=== PATIENT | male | born 1960 | race Caucasian/White ===

== ENCOUNTER 2016-12-11 13:02 | Emergency (ER) | payer OTHER ==
[~2016-12-11] VITALS: Ht 185.4 cm; Wt 78.6 kg
[~2016-12-11 13:02] MED LIST: CIPRO500 MG PO; CIPROFLOXACIN500 M1 PO; COUMADIN1 MG PO; DOXYCYCLINE HY100 MG PO; FERROUS SULFAT325 MG PO; FLAGYL500 MG PO; KETOCONAZOLE60 GM TP; LEVAQUIN750 MG PO; LOVENOX100 MG/1 M SC; LYRICA200 MG PO; METHADONE10 MG PO; MIDODRINE HCL5 MG PO; MORPHINE SULFAT60 MG PO; MS CONTIN,ORAMO60 MG PO; SANTYL30 GM TP; SILVADENE20 GM TP; VANCOMYCIN; VANCOMYCIN HCL250 MG PO; VANCOMYCIN1 GM/150 M IV
[2016-12-11 14:53] LABS: ADD MIUA? YES; BILIRUBIN NEGATIVE; BLOOD SMALL; COLOR YELLOW ((YELLOW)); GLUCOSE (STRIP) NEGATIVE; KETONES NEGATIVE; LEUKOCYTES LARGE; NITRITE POSITIVE; PH, URINE 8.5 (5-8); PROTEIN (STRIP) 100; SPECIFIC GRAVITY 1.015 (1.000-1.030); UROBILINOGEN 0.2 MG/DL (0.2-1.0)
[2016-12-11 14:58] VITALS: BP 99/47
[2016-12-11] MEDS ORDERED: BACTRIM,SEPT1 TABLET PO (15:02)
[2016-12-11 15:15] LABS: RED BLOOD CELLS RARE /HPF (0-5)
[2016-12-11 15:18] LABS: WHITE BLOOD CELLS 30-40 /HPF (0-5)
[2016-12-11 15:19] LABS: BACTERIA 3+; CASTS NONE SEEN /LPF; CRYSTALS NONE SEEN; EPITHELIAL CELLS NONE SEEN; MUCUS NONE SEEN; UCUL ADDED? YES
== END 2016-12-11 14:59 | disposition home or self-care (01) ==
LOC: EME 13:02
PROVIDERS: Nurse Practitioner Family
DX: Z46.6 Encounter for fitting and adjustment of urinary device (principal); N39.0 Urinary tract infection, site not specified; I10 Essential (primary) hypertension; G82.20 Paraplegia, unspecified; Z89.612 Acquired absence of left leg above knee; Z89.611 Acquired absence of right leg above knee; L89.309 Pressure ulcer of unspecified buttock, unspecified stage; Z88.0 Allergy status to penicillin; Z87.891 Personal history of nicotine dependence
CPT/HCPCS: 81003; 87077; 87086; 87186; 99281; 99284

== ENCOUNTER 2017-02-13 09:55 | Emergency (ER) | payer OTHER ==
[~2017-02-13] VITALS: Ht 142.2 cm; Wt 68.1 kg
[~2017-02-13 09:55] MED LIST changes: +BACTRIM,SEPT1 TABLET PO
[2017-02-13 11:03] LABS: ADD MIUA? YES; BILIRUBIN NEGATIVE; BLOOD NEGATIVE; COLOR YELLOW ((YELLOW)); GLUCOSE (STRIP) NEGATIVE; KETONES NEGATIVE; LEUKOCYTES LARGE; NITRITE NEGATIVE; PROTEIN (STRIP) 30; SPECIFIC GRAVITY 1.017 (1.000-1.030); UROBILINOGEN 0.2 MG/DL (0.2-1.0)
[2017-02-13 11:15] LABS: BACTERIA 2+ /HPF; BUDDING YEAST RARE; EPITHELIAL CELLS NONE SEEN /HPF; MUCUS NONE SEEN /LPF; UCUL ADDED? YES; UNCLASSIFIED CRYSTALS 3+ /HPF; WHITE BLOOD CELLS TNTC /HPF (0-5)
[2017-02-13 11:20] VITALS: BP 102/50
== END 2017-02-13 11:21 | disposition left against medical advice (07) ==
LOC: EME 09:55
PROVIDERS: Emergency Medicine
PROC: 0T2BX0Z Change Drainage Device in Bladder, External Approach (ICD-10-PCS; principal; 2017-02-13)
DX: T83.091A Other mechanical complication of indwelling urethral catheter, initial encounter (principal); N39.0 Urinary tract infection, site not specified; G82.20 Paraplegia, unspecified; Z89.611 Acquired absence of right leg above knee; Z89.612 Acquired absence of left leg above knee; Z93.3 Colostomy status; Z79.891 Long term (current) use of opiate analgesic; Z87.891 Personal history of nicotine dependence
CPT/HCPCS: 81003; 87077; 87086; 87186; 99281

== ENCOUNTER 2017-02-16 16:15 | Observation (INO) | payer OTHER ==
[~2017-02-16] VITALS: Ht 139.7 cm; Wt 70.5 kg
[2017-02-16 18:54] LABS: CHLORIDE 103 mEq/L (99-109); POTASSIUM 4.5 mEq/L (3.7-5.4); SODIUM 139 mEq/L (136-147)
[2017-02-16 18:56] LABS: GLUCOSE 72 mg/dL (70-99)
[2017-02-16 18:57] LABS: ANION GAP 12 MEQ/L (2-14)
[2017-02-16 18:58] LABS: TOTAL BILIRUBIN 0.2 mg/dL (0.0-1.0)
[2017-02-16 18:59] LABS: ALKALINE PHOSPHATASE 272 IU/L (3-129)
[2017-02-16 19:00] LABS: GFR ESTIMATE (CALCULATED) > 59 mL/min/
[2017-02-16 19:01] LABS: UREA NITROGEN (BUN) 22 mg/dL (9-23)
[2017-02-16 19:03] LABS: BASOPHIL COUNT 0.1 K/uL (0-0.1); EOSINOPHIL COUNT 0.4 K/uL (0-0.3); IMMATURE GRANULOCYTE (%) 0.7 % (0.0-0.7); IMMATURE GRANULOCYTE COUNT 0.1 K/uL; INSTRUMENT ABS NEUTROPHIL CT 9.1 K/uL; LYMPHOCYTE COUNT 1.8 K/uL (1.0-2.8); MCH 20.3 PG (29.0-34.0); MCHC 26.7 G/DL (30.0-36.0); MCV 76.3 FL (86-99); MEAN PLAT.VOLUME 8.5 uM^3 (9.0-12.4); MONOCYTE (%) 5.6 % (3-12); MONOCYTE COUNT 0.7 K/uL (0-0.8); NEUTROPHIL (%) 75.2 % (45-76); NEUTROPHIL COUNT 9.1 K/uL (1.8-6.4); PLATELET COUNT 621 K/uL (156-360); RBC DIS.WIDTH-CV 17.5 % (11.8-14.6); RED BLOOD COUNT 3.54 M/uL (4.00-5.50); WHITE BLOOD COUNT 12.1 K/uL (4.1-10.2)
[2017-02-16] MEDS ORDERED: LO-DOSE ASPIRIN81 M1 PO (23:34)
[2017-02-17 02:08] LABS: ADD MIUA? YES; BILIRUBIN NEGATIVE; BLOOD NEGATIVE; COLOR YELLOW ((YELLOW)); GLUCOSE (STRIP) NEGATIVE; KETONES NEGATIVE; LEUKOCYTES LARGE; NITRITE NEGATIVE; PROTEIN (STRIP) NEGATIVE; SPECIFIC GRAVITY 1.034 (1.000-1.030); UROBILINOGEN 0.2 MG/DL (0.2-1.0)
[2017-02-17 02:17] LABS: BACTERIA NONE SEEN /HPF; EPITHELIAL CELLS NONE SEEN /HPF; MUCUS TRACE /LPF; RED BLOOD CELLS 0-5 /HPF (0-5); UCUL ADDED? YES; WHITE BLOOD CELLS TNTC /HPF (0-5)
[2017-02-17 08:10] LABS: EOSINOPHIL (%) 5.7 % (0-5); EOSINOPHIL COUNT 0.4 K/uL (0-0.3); HEMATOCRIT 24.9 % (38.0-50.0); IMMATURE GRANULOCYTE (%) 0.8 % (0.0-0.7); IMMATURE GRANULOCYTE COUNT 0.1 K/uL; INSTRUMENT ABS NEUTROPHIL CT 4.1 K/uL; LYMPHOCYTE COUNT 1.4 K/uL (1.0-2.8); MCH 20.5 PG (29.0-34.0); MCHC 27.3 G/DL (30.0-36.0); MCV 75.2 FL (86-99); MONOCYTE (%) 7.5 % (3-12); MONOCYTE COUNT 0.5 K/uL (0-0.8); NEUTROPHIL COUNT 4.1 K/uL (1.8-6.4); PLATELET COUNT 541 K/uL (156-360); RBC DIS.WIDTH-CV 17.6 % (11.8-14.6); RBC DIS.WIDTH-SD 47.9 % (39-53); RED BLOOD COUNT 3.31 M/uL (4.00-5.50)
[2017-02-17 08:11] LABS: WHITE BLOOD COUNT 6.4 K/uL (4.1-10.2)
[2017-02-17 08:17] LABS: CHLORIDE 107 mEq/L (99-109); POTASSIUM 4.4 mEq/L (3.7-5.4); SODIUM 140 mEq/L (136-147)
[2017-02-17 08:18] LABS: GLUCOSE 70 mg/dL (70-99)
[2017-02-17 08:20] LABS: ANION GAP 12 MEQ/L (2-14)
[2017-02-17 08:22] LABS: GFR ESTIMATE (CALCULATED) > 59 mL/min/
[2017-02-17 08:23] LABS: UREA NITROGEN (BUN) 16 mg/dL (9-23)
[2017-02-17 10:28] VITALS: BP 100/70
[2017-02-17 10:45] VITALS: BP 91/58
[2017-02-17 12:35] LABS: HEMATOCRIT 32.7 % (38.0-50.0); MCV 77.9 FL (86-99)
[2017-02-17 15:50] VITALS: BP 96/64
== END 2017-02-17 13:53 | disposition home or self-care (01) ==
LOC: EME 16:15 → EDOF 02-17 02:21
PROVIDERS: Emergency Medicine; Family Medicine; Nurse Practitioner Adult Health
PROC: 30233N1 Transfusion of Nonautologous Red Blood Cells into Peripheral Vein, Percutaneous Approach (ICD-10-PCS; principal; 2017-02-17)
DX: N39.0 Urinary tract infection, site not specified (principal); I95.9 Hypotension, unspecified; L89.154 Pressure ulcer of sacral region, stage 4; M86.551 Other chronic hematogenous osteomyelitis, right femur; M86.552 Other chronic hematogenous osteomyelitis, left femur; D50.9 Iron deficiency anemia, unspecified; G89.4 Chronic pain syndrome; D72.829 Elevated white blood cell count, unspecified; Z89.611 Acquired absence of right leg above knee; Z89.612 Acquired absence of left leg above knee; Z87.891 Personal history of nicotine dependence
CPT/HCPCS: 72193; 80048; 80053; 81003; 83605; 85014; 85018; 85025; 86850; 86900; 86901; 86920; 87040; 87077; 87086; 87186; 99281; 99285; G0378; J0692; J1644; J2020; J2270; J7030; J7050; P9016

== ENCOUNTER 2017-04-01 11:04 | Emergency (ER) | payer OTHER ==
[~2017-04-01] VITALS: Ht 109.2 cm; Wt 66.1 kg
[~2017-04-01 11:04] MED LIST changes: +LO-DOSE ASPIRIN81 M1 PO
[2017-04-01 15:29] VITALS: BP 96/51
== END 2017-04-01 15:43 | disposition home or self-care (01) ==
LOC: EME 11:04
PROC: 0T9B70Z Drainage of Bladder with Drainage Device, Via Natural or Artificial Opening (ICD-10-PCS; principal; 2017-04-01)
DX: N31.9 Neuromuscular dysfunction of bladder, unspecified (principal); G82.20 Paraplegia, unspecified; S24.103S Unspecified injury at T7-T10 level of thoracic spinal cord, sequela; W11.XXXS Fall on and from ladder, sequela; L89.324 Pressure ulcer of left buttock, stage 4; L89.894 Pressure ulcer of other site, stage 4; Z86.14 Personal history of Methicillin resistant Staphylococcus aureus infection; Z87.440 Personal history of urinary (tract) infections; Z93.3 Colostomy status; Z89.612 Acquired absence of left leg above knee; Z89.611 Acquired absence of right leg above knee; Z79.891 Long term (current) use of opiate analgesic; Z79.82 Long term (current) use of aspirin; Z87.891 Personal history of nicotine dependence
CPT/HCPCS: 99281; 99284

== ENCOUNTER 2017-05-19 07:59 | Emergency (ER) | payer OTHER ==
[~2017-05-19] VITALS: Ht 139.7 cm; Wt 76.4 kg
[2017-05-19 10:35] VITALS: BP 117/56
== END 2017-05-19 10:36 | disposition home or self-care (01) ==
LOC: EME 07:59
DX: T83.89XA Other specified complication of genitourinary prosthetic devices, implants and grafts, initial encounter (principal); G82.20 Paraplegia, unspecified; Y84.6 Urinary catheterization as the cause of abnormal reaction of the patient, or of later complication, without mention of misadventure at the time of the procedure; I10 Essential (primary) hypertension; Z88.0 Allergy status to penicillin; Z87.891 Personal history of nicotine dependence
CPT/HCPCS: 99281; 99282

== ENCOUNTER 2017-08-24 08:47 | Emergency (ER) | payer OTHER ==
[~2017-08-24] VITALS: Ht 185.4 cm; Wt 75.0 kg
[2017-08-24 11:09] VITALS: BP 114/49
== END 2017-08-24 11:09 | disposition left against medical advice (07) ==
LOC: EME 08:47
PROC: 0T9B70Z Drainage of Bladder with Drainage Device, Via Natural or Artificial Opening (ICD-10-PCS; principal; 2017-08-24)
DX: T83.018A Breakdown (mechanical) of other urinary catheter, initial encounter (principal); Z93.3 Colostomy status; G82.20 Paraplegia, unspecified; Z89.612 Acquired absence of left leg above knee; Z89.511 Acquired absence of right leg below knee; Z88.0 Allergy status to penicillin; I10 Essential (primary) hypertension; Z87.891 Personal history of nicotine dependence
CPT/HCPCS: 99281; 99283

== ENCOUNTER 2017-10-27 11:58 | Observation (INO) | payer OTHER ==
[~2017-10-27] VITALS: Ht 142.2 cm; Wt 66.0 kg
[2017-10-27 13:10] LABS: CHLORIDE 102 mEq/L (99-109); POTASSIUM 5.2 mEq/L (3.7-5.4); SODIUM 138 mEq/L (136-147)
[2017-10-27 13:15] LABS: ANION GAP 14 MEQ/L (2-14); GLUCOSE 93 mg/dL (70-99); TOTAL BILIRUBIN 0.2 mg/dL (0.0-1.0)
[2017-10-27 13:19] LABS: ALKALINE PHOSPHATASE 215 IU/L (3-129); GFR ESTIMATE (CALCULATED) > 59 mL/min/; UREA NITROGEN (BUN) 15 mg/dL (9-23)
[2017-10-27 13:21] LABS: TROP-I INTERPRETATION NEGATIVE; TROPONIN-I < 0.01 ng/mL (0.0-0.30)
[2017-10-27 16:29] LABS: EOSINOPHIL (%) 1.1 % (0-5); EOSINOPHIL COUNT 0.1 K/uL (0-0.3); HEMATOCRIT 34.9 % (38.0-50.0); IMMATURE GRANULOCYTE (%) 0.5 % (0.0-0.7); INSTRUMENT ABS NEUTROPHIL CT 5.7 K/uL; LYMPHOCYTE COUNT 1.1 K/uL (1.0-2.8); MCH 21.9 PG (29.0-34.0); MCHC 29.2 G/DL (30.0-36.0); MCV 75.1 FL (86-99); MONOCYTE (%) 4.8 % (3-12); MONOCYTE COUNT 0.4 K/uL (0-0.8); NEUTROPHIL (%) 78.2 % (45-76); NEUTROPHIL COUNT 5.7 K/uL (1.8-6.4); RBC DIS.WIDTH-CV 16.5 % (11.8-14.6); RBC DIS.WIDTH-SD 44.7 % (39-53); RED BLOOD COUNT 4.65 M/uL (4.00-5.50); WHITE BLOOD COUNT 7.3 K/uL (4.1-10.2)
[2017-10-27 17:07] LABS: MEAN PLAT.VOLUME 9.5 uM^3 (9.0-12.4); PLAT.SUFFICIENCY INCREASED; PLATELET COUNT 519 K/uL (156-360)
[2017-10-27 18:39] VITALS: BP 87/53
[2017-10-27 19:30] VITALS: BP 99/54
[2017-10-27 21:39] LABS: ADD MIUA? YES; BILIRUBIN NEGATIVE; BLOOD SMALL; COLOR AMBER ((YELLOW)); GLUCOSE (STRIP) NEGATIVE; KETONES NEGATIVE; LEUKOCYTES LARGE; NITRITE POSITIVE; PROTEIN (STRIP) 100; SPECIFIC GRAVITY 1.021 (1.000-1.030)
[2017-10-27 21:56] LABS: AMPHETAMINES QUANT VALUE 0 NG/ML; BARBITUATES QUANT VALUE 0 NG/ML; BENZODIAZEPINES QUANT VALUE 0 NG/ML; BENZODIAZEPINES, URINE SCREEN Negative (200 ng/mL); MARIJUANA QUANT VALUE 0 NG/ML; OPIATES QUANTITATIVE VALUE 0 NG/ML; PHENCYCLIDINE QUANT VALUE 0 NG/ML
[2017-10-27 22:01] LABS: EPITHELIAL CELLS RARE /HPF; RED BLOOD CELLS RARE /HPF (0-5); WHITE BLOOD CELLS 40-50 /HPF (0-5)
[2017-10-27 22:02] LABS: BACTERIA 3+ /HPF; MUCUS NONE SEEN /LPF; UCUL ADDED? YES
[2017-10-27 22:03] LABS: CASTS NONE SEEN /LPF; CRYSTALS PRESENT
[2017-10-27 23:04] VITALS: BP 77/46
[2017-10-27 23:05] LABS: METH RESISTANT S AUREUS PCR POSITIVE (NEGATIVE)
[2017-10-27 23:08] LABS: PROBE CHECK PASS
[2017-10-28 02:35] VITALS: BP 92/55
[2017-10-28 03:10] LABS: TROP-I INTERPRETATION NEGATIVE; TROPONIN-I < 0.01 ng/mL (0.0-0.30)
[2017-10-28 04:54] VITALS: BP 109/58
[2017-10-28 07:01] VITALS: BP 90/44
[2017-10-28 10:16] LABS: HEMATOCRIT 31.2 % (38.0-50.0); MCH 22.6 PG (29.0-34.0); MCHC 29.5 G/DL (30.0-36.0); MCV 76.7 FL (86-99); PLATELET COUNT 416 K/uL (156-360); RBC DIS.WIDTH-CV 16.2 % (11.8-14.6); RBC DIS.WIDTH-SD 45.2 % (39-53); RED BLOOD COUNT 4.07 M/uL (4.00-5.50); WHITE BLOOD COUNT 5.7 K/uL (4.1-10.2)
[2017-10-28 10:59] LABS: ANION GAP 7 MEQ/L (2-14); CHLORIDE 106 MEQ/L (99-109); GFR ESTIMATE (CALCULATED) > 59 mL/min/; GLUCOSE 83 mg/dL (70-99); POTASSIUM 4.1 MEQ/L (3.7-5.4); SAMPLE HEMOLYSIS CHECK 0; SAMPLE ICTERIC CHECK 0; SAMPLE LIPEMIA CHECK 0; SODIUM 139 MEQ/L (136-147); UREA NITROGEN (BUN) 12 mg/dL (9-23)
[2017-10-28 11:43] VITALS: BP 86/49
[2017-10-28] MEDS ORDERED: LYRICA200 MG PO (16:07)
[2017-10-28 19:16] VITALS: BP 93/52
[2017-10-29 00:52] VITALS: BP 94/50
[2017-10-29 02:58] VITALS: BP 97/50
[2017-10-29] MEDS ORDERED: ULTRAM50 MG PO (08:40)
[2017-10-29] MEDS ORDERED: LIDODERM 5% P1 PATCH TD (08:40)
[2017-10-29 09:01] VITALS: BP 92/60
== END 2017-10-29 13:10 | disposition home or self-care (01) ==
LOC: EME 11:58 → EDOF 16:31 → 5WEST 16:31 → ENRESERV 16:50 → 5WEST 17:59
PROVIDERS: Emergency Medicine; Internal Medicine; Physician Assistant
PROC: 0T2BX0Z Change Drainage Device in Bladder, External Approach (ICD-10-PCS; principal; 2017-10-27)
DX: R07.9 Chest pain, unspecified (principal); N39.0 Urinary tract infection, site not specified; Z16.24 Resistance to multiple antibiotics; Z74.2 Need for assistance at home and no other household member able to render care; Z60.2 Problems related to living alone; Z89.611 Acquired absence of right leg above knee; Z89.612 Acquired absence of left leg above knee; Z93.3 Colostomy status; N36.8 Other specified disorders of urethra; G82.20 Paraplegia, unspecified; S22.069S Unspecified fracture of T7-T8 vertebra, sequela; W11.XXXS Fall on and from ladder, sequela; S21.101A Unspecified open wound of right front wall of thorax without penetration into thoracic cavity, initial encounter; L89.329 Pressure ulcer of left buttock, unspecified stage; L89.319 Pressure ulcer of right buttock, unspecified stage; G89.4 Chronic pain syndrome; L89.159 Pressure ulcer of sacral region, unspecified stage; D64.9 Anemia, unspecified; Q54.9 Hypospadias, unspecified; Z93.6 Other artificial openings of urinary tract status; N31.9 Neuromuscular dysfunction of bladder, unspecified; F11.20 Opioid dependence, uncomplicated; I95.9 Hypotension, unspecified; Z87.891 Personal history of nicotine dependence; Z88.5 Allergy status to narcotic agent; Z88.0 Allergy status to penicillin
CPT/HCPCS: 71010; 80048; 80053; 80150 90; 80170; 80306 90; 81003; 83605; 83690; 84484; 85025; 85027; 87040; 87077; 87086; 87186; 87641; 93005; 99281; 99285; G0378; J0278; J1650; J2020; J2405; J7030; J7050

== ENCOUNTER 2017-11-17 19:44 | Emergency (ER) | payer OTHER ==
[~2017-11-17] VITALS: Ht 152.4 cm; Wt 66.0 kg
[~2017-11-17 19:44] MED LIST changes: +LIDODERM 5% P1 PATCH TD; +ULTRAM50 MG PO
[2017-11-17] MEDS ORDERED: LYRICA200 MG PO (23:09)
[2017-11-18] MEDS ORDERED: PERCOCET 5/31 TABLET PO (00:22)
[2017-11-18 01:45] VITALS: BP 108/61
== END 2017-11-18 02:45 | disposition home or self-care (01) ==
LOC: EME 19:44
DX: S39.012A Strain of muscle, fascia and tendon of lower back, initial encounter (principal); W06.XXXA Fall from bed, initial encounter; Y93.84 Activity, sleeping; Y92.003 Bedroom of unspecified non-institutional (private) residence as the place of occurrence of the external cause; M48.061 Spinal stenosis, lumbar region without neurogenic claudication; Z89.612 Acquired absence of left leg above knee; Z89.611 Acquired absence of right leg above knee; Z79.891 Long term (current) use of opiate analgesic; Z79.82 Long term (current) use of aspirin; Z87.891 Personal history of nicotine dependence
CPT/HCPCS: 72131; 99281; 99284; J2270

== ENCOUNTER 2017-12-20 23:35 | Inpatient (IN) | payer OTHER ==
[~2017-12-20] VITALS: Ht 152.4 cm; Wt 68.9 kg
[~2017-12-20 23:35] MED LIST changes: +PERCOCET 5/31 TABLET PO
[2017-12-21 01:00] LABS: BASOPHIL (%) 0.4 % (0-1); EOSINOPHIL COUNT 0.2 K/uL (0-0.3); HEMATOCRIT 38.2 % (38.0-50.0); HEMOGLOBIN 11.3 G/DL (12.5-16.6); IMMATURE GRANULOCYTE (%) 0.6 % (0.0-0.7); LYMPHOCYTE (%) 11.4 % (15-42); LYMPHOCYTE COUNT 1.1 K/uL (1.0-2.8); MCH 21.9 PG (29.0-34.0); MCHC 29.6 G/DL (30.0-36.0); MCV 74.2 FL (86-99); MONOCYTE (%) 7.8 % (3-12); MONOCYTE COUNT 0.8 K/uL (0-0.8); NEUTROPHIL (%) 77.8 % (45-76); NEUTROPHIL COUNT 7.7 K/uL (1.8-6.4); PLATELET COUNT 581 K/uL (156-360); RBC DIS.WIDTH-CV 16.5 % (11.8-14.6); RBC DIS.WIDTH-SD 44.2 % (39-53); RED BLOOD COUNT 5.15 M/uL (4.00-5.50); WHITE BLOOD COUNT 9.9 K/uL (4.1-10.2)
[2017-12-21 01:08] LABS: CHLORIDE 103 mEq/L (99-109); POTASSIUM 4.6 mEq/L (3.7-5.4); SODIUM 139 mEq/L (136-147)
[2017-12-21 01:09] LABS: GLUCOSE 104 mg/dL (70-99)
[2017-12-21 01:13] LABS: CREATININE 0.8 mg/dL (0.6-1.3); GFR ESTIMATE (CALCULATED) > 59 mL/min/ (58.99-99999)
[2017-12-21 01:14] LABS: UREA NITROGEN (BUN) 12 mg/dL (9-23)
[2017-12-21] MEDS ORDERED: TRAMADOL HCL50 MG PO (09:42)
[2017-12-21] MEDS ORDERED: METHADONE10 MG PO (09:43)
[2017-12-21 10:15] VITALS: BP 107/57
[2017-12-21 16:27] VITALS: BP 89/54
[2017-12-21 20:08] VITALS: BP 87/50
[2017-12-21 21:00] VITALS: BP 101/66
[2017-12-22] VITALS (9 sets, daily range): BP systolic 67–106; BP diastolic 44–62
[2017-12-22 06:00] LABS: HEMATOCRIT 34.7 % (38.0-50.0); MCH 21.6 PG (29.0-34.0); MCHC 28.8 G/DL (30.0-36.0); MCV 75.1 FL (86-99); PLATELET COUNT 520 K/uL (156-360); RBC DIS.WIDTH-CV 16.8 % (11.8-14.6); RBC DIS.WIDTH-SD 45.6 % (39-53); RED BLOOD COUNT 4.62 M/uL (4.00-5.50); WHITE BLOOD COUNT 6.4 K/uL (4.1-10.2)
[2017-12-22 06:12] LABS: CHLORIDE 109 MEQ/L (99-109); CREATININE 0.9 MG/DL (0.6-1.3); GFR ESTIMATE (CALCULATED) > 59 mL/min/ (58.99-99999); SODIUM 141 MEQ/L (136-147); UREA NITROGEN (BUN) 12 mg/dL (9-23)
[2017-12-22 06:14] LABS: GLUCOSE 69 mg/dL (70-99)
[2017-12-23 03:50] VITALS: BP 99/53
[2017-12-23 09:22] VITALS: BP 80/45
[2017-12-23 16:51] VITALS: BP 84/47
[2017-12-23 23:30] VITALS: BP 99/54
[2017-12-24] VITALS (7 sets, daily range): BP systolic 64–122; BP diastolic 38–84
[2017-12-25 01:13] VITALS: BP 85/45
[2017-12-25 15:30] VITALS: BP 89/50
[2017-12-25 21:00] VITALS: BP 101/65
[2017-12-25 23:32] VITALS: BP 94/51
[2017-12-26 06:05] LABS: CHLORIDE 104 MEQ/L (99-109); CREATININE 0.7 MG/DL (0.6-1.3); GFR ESTIMATE (CALCULATED) > 59 mL/min/ (58.99-99999); GLUCOSE 90 mg/dL (70-99); POTASSIUM 4.2 MEQ/L (3.7-5.4); SODIUM 139 MEQ/L (136-147); UREA NITROGEN (BUN) 17 mg/dL (9-23)
[2017-12-26 07:17] VITALS: BP 85/52
[2017-12-26 09:42] LABS: HEMATOCRIT 31.5 % (38.0-50.0); HEMOGLOBIN 9.3 G/DL (12.5-16.6); MCH 22.6 PG (29.0-34.0); MCHC 29.5 G/DL (30.0-36.0); MCV 76.5 FL (86-99); PLATELET COUNT 393 K/uL (156-360); RBC DIS.WIDTH-CV 17.5 % (11.8-14.6); RBC DIS.WIDTH-SD 47.3 % (39-53); RED BLOOD COUNT 4.12 M/uL (4.00-5.50); WHITE BLOOD COUNT 6.5 K/uL (4.1-10.2)
[2017-12-26 15:40] VITALS: BP 92/52
[2017-12-26 23:48] VITALS: BP 132/63
[2017-12-27 04:00] VITALS: BP 110/65
[2017-12-27 05:58] LABS: BASOPHIL (%) 1.1 % (0-1); BASOPHIL COUNT 0.1 K/uL (0-0.1); EOSINOPHIL (%) 5.6 % (0-5); EOSINOPHIL COUNT 0.3 K/uL (0-0.3); HEMATOCRIT 30.9 % (38.0-50.0); HEMOGLOBIN 8.9 G/DL (12.5-16.6); IMMATURE GRANULOCYTE (%) 0.7 % (0.0-0.7); LYMPHOCYTE (%) 45.8 % (15-42); LYMPHOCYTE COUNT 2.5 K/uL (1.0-2.8); MCH 21.7 PG (29.0-34.0); MCHC 28.8 G/DL (30.0-36.0); MCV 75.4 FL (86-99); MONOCYTE (%) 7.1 % (3-12); MONOCYTE COUNT 0.4 K/uL (0-0.8); NEUTROPHIL (%) 39.7 % (45-76); NEUTROPHIL COUNT 2.2 K/uL (1.8-6.4); PLATELET COUNT 354 K/uL (156-360); RBC DIS.WIDTH-CV 17.4 % (11.8-14.6); RBC DIS.WIDTH-SD 46.1 % (39-53); WHITE BLOOD COUNT 5.5 K/uL (4.1-10.2)
[2017-12-27 06:08] LABS: ALBUMIN 2.7 G/DL (3.2-4.8); CHLORIDE 105 MEQ/L (99-109); POTASSIUM 4.3 MEQ/L (3.7-5.4); SODIUM 141 MEQ/L (136-147); TOTAL BILIRUBIN 0.2 MG/DL (0.0-1.0)
[2017-12-27 06:14] LABS: ALKALINE PHOSPHATASE 87 IU/L (3-129); ALT (GPT) 7 IU/L (3-49); AST (GOT) 11 IU/L (2-34); CREATININE 0.7 MG/DL (0.6-1.3); GFR ESTIMATE (CALCULATED) > 59 mL/min/ (58.99-99999); GLUCOSE 83 mg/dL (70-99); TOTAL PROTEIN 5.9 G/DL (6.4-8.3); UREA NITROGEN (BUN) 18 mg/dL (9-23)
[2017-12-27 08:08] VITALS: BP 109/55
[2017-12-27] MEDS ORDERED: METHADONE10 MG PO (13:48)
[2017-12-27 16:06] VITALS: BP 163/79; BP 84/46
[2017-12-27 18:31] VITALS: BP 99/51
[2017-12-28] VITALS (9 sets, daily range): BP systolic 78–109; BP diastolic 40–79
[2017-12-28 06:08] LABS: BASOPHIL (%) 1.1 % (0-1); BASOPHIL COUNT 0.1 K/uL (0-0.1); EOSINOPHIL (%) 5.2 % (0-5); EOSINOPHIL COUNT 0.3 K/uL (0-0.3); HEMATOCRIT 32.1 % (38.0-50.0); HEMOGLOBIN 9.3 G/DL (12.5-16.6); IMMATURE GRANULOCYTE (%) 0.5 % (0.0-0.7); LYMPHOCYTE (%) 42.2 % (15-42); LYMPHOCYTE COUNT 2.3 K/uL (1.0-2.8); MCH 22.1 PG (29.0-34.0); MCV 76.4 FL (86-99); MONOCYTE (%) 7.7 % (3-12); MONOCYTE COUNT 0.4 K/uL (0-0.8); NEUTROPHIL (%) 43.3 % (45-76); NEUTROPHIL COUNT 2.4 K/uL (1.8-6.4); PLATELET COUNT 353 K/uL (156-360); RBC DIS.WIDTH-CV 17.6 % (11.8-14.6); RBC DIS.WIDTH-SD 47.8 % (39-53); WHITE BLOOD COUNT 5.6 K/uL (4.1-10.2)
[2017-12-28 06:34] LABS: ALBUMIN 2.8 G/DL (3.2-4.8); ALKALINE PHOSPHATASE 79 IU/L (3-129); ALT (GPT) 10 IU/L (3-49); AST (GOT) 16 IU/L (2-34); CHLORIDE 104 MEQ/L (99-109); CREATININE 0.8 MG/DL (0.6-1.3); GFR ESTIMATE (CALCULATED) > 59 mL/min/ (58.99-99999); GLUCOSE 91 mg/dL (70-99); POTASSIUM 4.5 MEQ/L (3.7-5.4); SODIUM 140 MEQ/L (136-147); TOTAL BILIRUBIN 0.2 MG/DL (0.0-1.0); TOTAL PROTEIN 6.8 G/DL (6.4-8.3); UREA NITROGEN (BUN) 20 mg/dL (9-23)
[2017-12-29 00:25] VITALS: BP 124/68
[2017-12-29 03:39] VITALS: BP 97/58
[2017-12-29 05:36] LABS: BASOPHIL (%) 0.9 % (0-1); BASOPHIL COUNT 0.1 K/uL (0-0.1); EOSINOPHIL (%) 5.8 % (0-5); EOSINOPHIL COUNT 0.3 K/uL (0-0.3); HEMATOCRIT 29.9 % (38.0-50.0); HEMOGLOBIN 8.6 G/DL (12.5-16.6); IMMATURE GRANULOCYTE (%) 0.4 % (0.0-0.7); LYMPHOCYTE COUNT 2.4 K/uL (1.0-2.8); MCH 21.9 PG (29.0-34.0); MCHC 28.8 G/DL (30.0-36.0); MCV 76.1 FL (86-99); MONOCYTE (%) 7.8 % (3-12); MONOCYTE COUNT 0.4 K/uL (0-0.8); NEUTROPHIL (%) 42.1 % (45-76); NEUTROPHIL COUNT 2.3 K/uL (1.8-6.4); PLATELET COUNT 345 K/uL (156-360); RBC DIS.WIDTH-CV 17.6 % (11.8-14.6); RBC DIS.WIDTH-SD 47.8 % (39-53); RED BLOOD COUNT 3.93 M/uL (4.00-5.50); WHITE BLOOD COUNT 5.5 K/uL (4.1-10.2)
[2017-12-29 06:03] LABS: CHLORIDE 102 MEQ/L (99-109); CREATININE 0.9 MG/DL (0.6-1.3); GFR ESTIMATE (CALCULATED) > 59 mL/min/ (58.99-99999); GLUCOSE 89 mg/dL (70-99); POTASSIUM 4.6 MEQ/L (3.7-5.4); SODIUM 138 MEQ/L (136-147); UREA NITROGEN (BUN) 22 mg/dL (9-23)
[2017-12-29 08:26] VITALS: BP 91/56
[2017-12-29 11:42] VITALS: BP 92/52
[2017-12-29 19:30] VITALS: BP 91/54
[2017-12-30] VITALS (7 sets, daily range): BP systolic 96–131; BP diastolic 54–70
[2017-12-30 05:50] LABS: BASOPHIL (%) 1.1 % (0-1); BASOPHIL COUNT 0.1 K/uL (0-0.1); EOSINOPHIL (%) 5.7 % (0-5); EOSINOPHIL COUNT 0.4 K/uL (0-0.3); HEMATOCRIT 30.2 % (38.0-50.0); HEMOGLOBIN 8.8 G/DL (12.5-16.6); IMMATURE GRANULOCYTE (%) 0.3 % (0.0-0.7); LYMPHOCYTE (%) 33.7 % (15-42); LYMPHOCYTE COUNT 2.1 K/uL (1.0-2.8); MCH 22.4 PG (29.0-34.0); MCHC 29.1 G/DL (30.0-36.0); MCV 76.8 FL (86-99); MONOCYTE (%) 7.8 % (3-12); MONOCYTE COUNT 0.5 K/uL (0-0.8); NEUTROPHIL (%) 51.4 % (45-76); NEUTROPHIL COUNT 3.2 K/uL (1.8-6.4); PLATELET COUNT 323 K/uL (156-360); RBC DIS.WIDTH-CV 17.9 % (11.8-14.6); RBC DIS.WIDTH-SD 49.1 % (39-53); RED BLOOD COUNT 3.93 M/uL (4.00-5.50); WHITE BLOOD COUNT 6.3 K/uL (4.1-10.2)
[2017-12-30 06:24] LABS: CHLORIDE 99 MEQ/L (99-109); CREATININE 0.8 MG/DL (0.6-1.3); GFR ESTIMATE (CALCULATED) > 59 mL/min/ (58.99-99999); GLUCOSE 78 mg/dL (70-99); POTASSIUM 4.7 MEQ/L (3.7-5.4); SODIUM 139 MEQ/L (136-147); UREA NITROGEN (BUN) 22 mg/dL (9-23)
[2017-12-31] VITALS (8 sets, daily range): BP systolic 63–128; BP diastolic 33–76
[2017-12-31 05:31] LABS: BASOPHIL (%) 0.6 % (0-1); EOSINOPHIL (%) 5.3 % (0-5); EOSINOPHIL COUNT 0.4 K/uL (0-0.3); HEMATOCRIT 32.9 % (38.0-50.0); HEMOGLOBIN 9.4 G/DL (12.5-16.6); IMMATURE GRANULOCYTE (%) 0.2 % (0.0-0.7); LYMPHOCYTE (%) 30.4 % (15-42); MCH 22.2 PG (29.0-34.0); MCHC 28.6 G/DL (30.0-36.0); MCV 77.6 FL (86-99); MONOCYTE (%) 9.6 % (3-12); MONOCYTE COUNT 0.6 K/uL (0-0.8); NEUTROPHIL (%) 53.9 % (45-76); NEUTROPHIL COUNT 3.6 K/uL (1.8-6.4); PLATELET COUNT 316 K/uL (156-360); RBC DIS.WIDTH-CV 18.3 % (11.8-14.6); RED BLOOD COUNT 4.24 M/uL (4.00-5.50); WHITE BLOOD COUNT 6.6 K/uL (4.1-10.2)
[2017-12-31 06:17] LABS: CHLORIDE 101 MEQ/L (99-109); CREATININE 0.8 MG/DL (0.6-1.3); GFR ESTIMATE (CALCULATED) > 59 mL/min/ (58.99-99999); GLUCOSE 67 mg/dL (70-99); POTASSIUM 4.7 MEQ/L (3.7-5.4); SODIUM 137 MEQ/L (136-147); UREA NITROGEN (BUN) 24 mg/dL (9-23)
[2018-01-01 04:18] VITALS: BP 85/49
[2018-01-01 05:52] LABS: BASOPHIL (%) 0.8 % (0-1); BASOPHIL COUNT 0.1 K/uL (0-0.1); EOSINOPHIL (%) 4.4 % (0-5); EOSINOPHIL COUNT 0.3 K/uL (0-0.3); HEMOGLOBIN 8.6 G/DL (12.5-16.6); IMMATURE GRANULOCYTE (%) 0.3 % (0.0-0.7); LYMPHOCYTE (%) 26.4 % (15-42); LYMPHOCYTE COUNT 1.9 K/uL (1.0-2.8); MCH 22.4 PG (29.0-34.0); MCHC 28.7 G/DL (30.0-36.0); MCV 78.1 FL (86-99); MONOCYTE (%) 10.1 % (3-12); MONOCYTE COUNT 0.7 K/uL (0-0.8); NEUTROPHIL COUNT 4.2 K/uL (1.8-6.4); PLATELET COUNT 281 K/uL (156-360); RBC DIS.WIDTH-CV 18.6 % (11.8-14.6); RBC DIS.WIDTH-SD 51.3 % (39-53); RED BLOOD COUNT 3.84 M/uL (4.00-5.50); WHITE BLOOD COUNT 7.2 K/uL (4.1-10.2)
[2018-01-01 06:21] LABS: CHLORIDE 104 MEQ/L (99-109); CREATININE 0.9 MG/DL (0.6-1.3); GFR ESTIMATE (CALCULATED) > 59 mL/min/ (58.99-99999); GLUCOSE 82 mg/dL (70-99); POTASSIUM 4.7 MEQ/L (3.7-5.4); SODIUM 138 MEQ/L (136-147); UREA NITROGEN (BUN) 25 mg/dL (9-23); VANCOMYCIN, TROUGH 19.1 MCG/ML (10-20)
[2018-01-01 07:30] VITALS: BP 82/45
[2018-01-01 11:56] VITALS: BP 103/52
[2018-01-01] MEDS ORDERED: CORTEF5 M1 PO ×2 (16:17→16:19)
[2018-01-01] MEDS ORDERED: DILAUDID4 MG PO (16:24)
[2018-01-01] MEDS ORDERED: METHYLPREDNISO125 MG IM (16:32)
[2018-01-01 16:45] VITALS: BP 103/51
[2018-01-01 21:30] VITALS: BP 120/56
[2018-01-02 00:15] VITALS: BP 132/60
[2018-01-02 05:25] VITALS: BP 116/58
[2018-01-02 07:37] VITALS: BP 106/56
[2018-01-03 05:51] LABS: ADRENOCORTICOTROPIC HORMONE+ <5 pg/mL (6-50)
[2018-01-04 15:20] LABS: RENIN ACTIVITY 0.51 ng/mL/h (0.25-5.82)
== END 2018-01-02 08:57 | DRG 853 ==
LOC: EME 23:35 → EDOF 12-21 07:42 → 3EAST 12-21 07:42 → ENRESERV 12-21 07:43 → 3EAST 12-21 08:58 → ENRESERV 12-28 14:50 → 4EAST 12-28 17:39
PROVIDERS: Emergency Medicine; Hospitalist; Internal Medicine; Student in an Organized Health Care Education/Training Program
DX: A41.9 Sepsis, unspecified organism (principal); L89.154 Pressure ulcer of sacral region, stage 4; M86.10 Other acute osteomyelitis, unspecified site; N39.0 Urinary tract infection, site not specified; D64.9 Anemia, unspecified; L89.323 Pressure ulcer of left buttock, stage 3; M86.60 Other chronic osteomyelitis, unspecified site; E27.40 Unspecified adrenocortical insufficiency; L89.893 Pressure ulcer of other site, stage 3; L89.304 Pressure ulcer of unspecified buttock, stage 4; T81.89XA Other complications of procedures, not elsewhere classified, initial encounter; L89.329 Pressure ulcer of left buttock, unspecified stage; G82.20 Paraplegia, unspecified; G89.4 Chronic pain syndrome; I95.9 Hypotension, unspecified; T83.011A Breakdown (mechanical) of indwelling urethral catheter, initial encounter; T83.091A Other mechanical complication of indwelling urethral catheter, initial encounter; N31.9 Neuromuscular dysfunction of bladder, unspecified; Z22.322 Carrier or suspected carrier of Methicillin resistant Staphylococcus aureus; Z87.891 Personal history of nicotine dependence; Z87.440 Personal history of urinary (tract) infections; Z79.2 Long term (current) use of antibiotics; Z68.30 Body mass index [BMI] 30.0-30.9, adult; Z87.11 Personal history of peptic ulcer disease; Z89.611 Acquired absence of right leg above knee; Z89.612 Acquired absence of left leg above knee; Z93.3 Colostomy status; Z89.512 Acquired absence of left leg below knee; Z82.3 Family history of stroke; Z88.0 Allergy status to penicillin; Z80.8 Family history of malignant neoplasm of other organs or systems; G04.91 Myelitis, unspecified; I35.0 Nonrheumatic aortic (valve) stenosis; J45.909 Unspecified asthma, uncomplicated; Y73.8 Miscellaneous gastroenterology and urology devices associated with adverse incidents, not elsewhere classified
CPT/HCPCS: 72192; 80048; 80053; 80202; 80400; 82024 90; 82088 90; 82533 91; 83605; 84244 90; 85025; 85027; 85652; 86140; 87040; 87070; 87075; 87076; 87077; 87147; 87185; 87186; 87205; 93005; 93306; 99281; 99285; A6242; J0692; J0834; J1170; J1200; J1650; J2250; J2270; J2405; J3010; J3370; J7030; J7040; J7050; P9045; P9047